=== PATIENT | female | born 1965 | race Asian ===

== ENCOUNTER 2018-10-26 18:27 | Inpatient (IN) | payer OTHER ==
[~2018-10-26] VITALS: Ht 160 cm; Wt 61.2 kg
[2018-10-26 18:35] VITALS: Ht 160 cm; Wt 61.2 kg
--- NOTE | 2018-10-26 19:46 | NUR ---
PT BROUGHT IN BY AMBULANCE FOR FLU LIKE SYMPTOMS X 2 DAYS WITH WITNESSED SYNCOPAL EPISODE AND "NO TRAUMA" PER RECEIVING WORKER. PT REPORTS GENERALIZED BODY ACHES THAT SHE STATES IS 10/10 PAIN. DENIES NAUSEA. AWAKE, ALERT, RESPIRATIONS EVEN AND UNLABORED, SAFETY PRECAUTIONS IN PLACE. WILL CONTINUE TO MONITOR.
--- NOTE | 2018-10-26 19:49 | NUR ---
MEDICAL DOCTOR MD/MEDICAL DIRECTOR AT BEDSIDE
--- NOTE | 2018-10-26 19:57 | NUR ---
PATIENT TAKEN FOR CT SCAN
--- NOTE | 2018-10-26 20:06 | NUR ---
PT BACK FROM CT, INFANT ROOM TEACHER AT BEDSIDE. STATUS REMAINS UNCHANGED. WILL CONTINUE TO MONITOR
[2018-10-26 20:07] LABS: BASOPHIL % 0 % (0-2); PLATELET COUNT 281 x10^3mcL (130-400); RED CELL DISTRIBUTION WIDTH 12.8 % (11.5-14.5)
[2018-10-26 20:14] LABS: CALCIUM 8.2 mg/dL (8.5-10.1); CARBON DIOXIDE 27.4 mmol/L (21-32); CHLORIDE SERUM 102 mmol/L (98-107); CREATININE SERUM 0.8 mg/dL (0.6-1.0); GFR1 > 60 mL/min; GLUCOSE SERUM 122 mg/dL (74-106); POTASSIUM SERUM 3.8 mmol/L (3.5-5.1); SODIUM SERUM 140 mmol/L (136-145)
[2018-10-26 20:18] LABS: ALBUMIN 3.4 g/dL (3.4-5.0); ALKALINE PHOSPHATASE 80 U/L (46-116); ALT/SGPT 45 U/L (14-59); AST/SGOT 52 U/L (15-37); BILIRUBIN TOTAL 0.43 mg/dL (0.20-1.00); TOTAL PROTEIN, SERUM 7.6 g/dL (6.4-8.2)
--- NOTE | 2018-10-26 20:32 | NUR ---
SPECIMEN CUP PROVIDED TO PATIENT AND VERBALIZED FOR NEED TO PROVIDE URINE SAMPLE, PATIENT VERBALIZES UNDERSTANDING
--- NOTE | 2018-10-26 20:51 | NUR ---
TEMP 101.7, DR. TAYLOR MADE AWARE, AWAITING ORDERS
--- NOTE | 2018-10-26 21:01 | NUR ---
MEDICATED PER EMAR. PT AWAKE, ALERT, RESPIRATIONS EVEN AND UNLABORED. WILL CONTINUE TO MONITOR
--- NOTE | 2018-10-26 21:04 | NUR ---
PT ESCORTED TO RESTROOM WITH HELP OF FAMILY
--- NOTE | 2018-10-26 21:27 | NUR ---
DR. TAYLOR PERFORMED LUMBAR PUNCTURE, PATIENT APPEARS TO HAVE TOLERATED WELL.
[2018-10-26 21:52] LABS: microscopic required? YES; urine erythrocyte TRACE (NEGATIVE)
[2018-10-26 22:13] LABS: TOTAL PROTEIN CSF 33 mg/dL (15-45)
[2018-10-26 22:28] LABS: APPEARANCE CSF CLEAR; COLOR CSF COLORLESS; RBC CSF 9 /cumm (0); WBC CSF 0 /cumm (0-5)
[2018-10-26 22:29] LABS: APPEARANCE CSF CLEAR; COLOR CSF COLORLESS; RBC CSF 1 /cumm (0); WBC CSF 0 /cumm (0-5)
--- NOTE | 2018-10-26 23:17 | NUR ---
PT RESTING WITH EYES CLOSED, RESPIRATIONS EVEN AND UNLABORED. FAMILY AT BEDSIDE. SAFETY PRECAUTIONS IN PLACE. WILL CONTINUE TO MONITOR
--- NOTE | 2018-10-26 23:31 | NUR ---
REPORT GIVEN TO CARMEL
--- NOTE | 2018-10-27 00:19 | NUR ---
REPORT GIVEN TO JUAN, ALL QUESTIONS AND CONCERNS WERE ADDRESSED
--- NOTE | 2018-10-27 00:44 | NUR ---
PATIENT WAS TRANSFERRED TO ROOM 243B WITHOUT ANY ISSUES ENCOUNTERED. IV SITE REMAINS CDI AND PATENT WITH NO S/S OF INFILTRATION, REDNESS, EDEMA, OR DRAINAGE. PRIMARY RN ACCEPTED PATIENT
[2018-10-27 01:08] VITALS: BP 134/76
--- NOTE | 2018-10-27 01:59 | NUR ---
PT RECIEVED FROM ED. DAUGHTER AT BEDSIDE. NO DISTRESS NOTED. IV SITE PATENT AND FLUSHING WELL. PT A/O X4. DENIES PAIN. DENIES SOB ON 2L NC. ORIENTED PT TO ROOM AND SURROUNDINGS. CALL LIGHT WITHIN REACH. BED IN LOWEST POSITION. SEIZURE PRECAUTIONS IN USE. WILL CONTINUE TO MONITOR.
--- NOTE | 2018-10-27 03:10 | NUR ---
PT CELESTE NOTIFIED VIA [facility] TO ORDER MRSA CULTURE AND TO CHANGE ROCEPHIN FROM IVP TO IVBP.
[2018-10-27 05:34] VITALS: BP 119/76
[2018-10-27 06:39] LABS: PLATELET COUNT 264 x10^3mcL (130-400); RED CELL DISTRIBUTION WIDTH 13.1 % (11.5-14.5)
[2018-10-27 06:42] LABS: CALCIUM 8.3 mg/dL (8.5-10.1); CARBON DIOXIDE 27.6 mmol/L (21-32); CHLORIDE SERUM 105 mmol/L (98-107); CREATININE SERUM 0.7 mg/dL (0.6-1.0); GFR1 > 60 mL/min; GLUCOSE SERUM 107 mg/dL (74-106); POTASSIUM SERUM 3.7 mmol/L (3.5-5.1); SODIUM SERUM 143 mmol/L (136-145)
[2018-10-27 06:47] LABS: BASOPHIL % 0 % (0-2)
--- NOTE | 2018-10-27 07:21 | NUR ---
PT COMPLAINT OF MCHUGH, RATES 8/10, CONTINUOUS, ACHING. DENIES DIZZINESS. MILD NAUSEA REPORTED. DECLINED TO MEDICATION FOR NAUSEA, GIVEN TYLENOL SEE MAR. PT AA/OX4. FOLLOWS COMPLEX COMMANDS, RESPONDS TO VERBAL STIMULI, FACE SYMMTRICAL. SPEECH CLEAR. SEIZURE PREC IN PLACE. NO S/S OF ACUTE DISTRESS. NO COMPLAINT OF CHEST PAIN. FOUND ON 2LNC, DENIES SOB. RR EVEN/UNLABORED. CHEST EXPANSION SYMMETRICAL. IV WNL TO LFA, NO REDNESS, NO SWELLING, NO INFILTRATION. PATENT. FLUSHES WELL. CALM/COOPERATIVE. INSTRUCTED TO USE CALL LIGHT TO CALL FOR ASSISTANCE PRN. PT VERBALIZED UNDERSTANDING. DROPLET PREC IN PLACE. DAUGHTER AT BEDSIDE. BED IN LOW POSITION. CALL LIGHT WITHIN REACH. WILL CONT. TO MONITOR.
[2018-10-27 09:29] VITALS: BP 112/66
--- NOTE | 2018-10-27 10:50 | NUR ---
PT FOUND RESTING IN BED WITH BOTH EYES CLOSED. NO S/S OF ACUTE DISTRESS. NO SOB ON 2LNC. PT CALM/COOPERATIVE. EASILY AROUSABLE TO VERBAL STIMULI. NO MCHUGH AT THIS TIME. NO N/V. NO DIZZINESS. NO FEVER. DAUGHTER AT BEDSIDE. DROPLET PREC IN PLACE. BED IN LOW POSITION. CALL LIGHT WITHIN REACH. WILL CONT. TO MONITOR.
[2018-10-27 13:05] VITALS: BP 121/82
[2018-10-27] MEDS ORDERED: TAM75 PO (15:22)
[2018-10-27 16:48] VITALS: BP 109/69
[2018-10-27 16:50] VITALS: BP 109/69
--- NOTE | 2018-10-27 17:15 | NUR ---
PT BEING DISCHARGED TO HOME. AWAKE, ALERT, ORIENTED X4. NO S/S OF ACUTE DISTRESS. NO N/V. NO MCHUGH. NO DIZZINESS. NO SOB ON ROOM AIR. O2 SAT 95%. RR EVEN/UNLABORED. PT HAS CONGESTED COUGH. NO S/S OF ACUTE DISTRESS. NO CHEST PAIN. NSR ON TELE, TELE REMOVED. DISCHARGE EDUCATION PROVIDED TO PATIENT/DAUGHTER. INSTRUCTED TO FOLLOW UP WITH PCP IN [address] DUFFY. PT/DAUGHTER VERBALIZED UNDERSTANDING. DROPLET PRECAUTIONS IN PLACE. IV REMOVED, CATHETER IN TACT. PRESSURE APPLIED. SITE WNL. NO REDNESS, NO SWELLING, NO INFILTRATION. NO CHEST PAIN. TELE REMOVED. NO CHILLS. NO FEVER. BELONGINGS WITH PATIENT. PRESCRIPTION WITH PATIENT.
--- NOTE | 2018-10-27 17:32 | NUR ---
PT TAKEN TO LOBBY BY ZULEYKA LIRIANO. AMBULATORY WITH FULL ROM, GAIT STEADY. AWAKE, ALERT, ORIENTED X4. BELONGINGS AND PRESCRIPTION WITH PATIENT. NO S/S OF ACUTE DISTRESS.
== END 2018-10-27 17:32 | disposition home or self-care (01) | DRG 113 ==
LOC: ED 18:27 → DU 23:31
PROVIDERS: Emergency Medicine; Internal Medicine; ADMIT Internal Medicine Pulmonary Disease
PROC: 009U3ZZ Drainage of Spinal Canal, Percutaneous Approach (ICD-10-PCS; principal; 2018-10-26)
DX: J11.1 Influenza due to unidentified influenza virus with other respiratory manifestations (principal); R56.9 Unspecified convulsions; R55 Syncope and collapse; Z23 Encounter for immunization
CPT/HCPCS: 87804; 90658; J0696; J1644; J2001; J7030; Q0092

== ENCOUNTER 2019-03-03 00:49 | Emergency (ER) | payer OTHER ==
[~2019-03-03] VITALS: Ht 160 cm; Wt 62.1 kg
[~2019-03-03 00:49] MED LIST: TAM75 PO
[2019-03-03 01:07] VITALS: Ht 160 cm; Wt 62.1 kg
[2019-03-03 02:07] LABS: BASOPHIL % 0.4 % (0-2); PLATELET COUNT 340 x10^3mcL (130-400); RED CELL DISTRIBUTION WIDTH 12.7 % (11.5-14.5)
[2019-03-03 02:21] LABS: CALCIUM 9.4 mg/dL (8.5-10.1); CARBON DIOXIDE 29.1 mmol/L (21-32); CHLORIDE SERUM 106 mmol/L (98-107); CREATININE SERUM 0.8 mg/dL (0.6-1.0); GFR1 > 60 mL/min; GLUCOSE SERUM 132 mg/dL (74-106); SODIUM SERUM 145 mmol/L (136-145)
[2019-03-03 02:25] LABS: ALBUMIN 3.9 g/dL (3.4-5.0); ALKALINE PHOSPHATASE 95 U/L (46-116); ALT/SGPT 26 U/L (14-59); AST/SGOT 17 U/L (15-37); BILIRUBIN TOTAL 0.18 mg/dL (0.20-1.00); LIPASE 142 IU/L (73-393); TOTAL PROTEIN, SERUM 7.4 g/dL (6.4-8.2)
[2019-03-03 03:52] VITALS: BP 142/79
== END 2019-03-03 03:52 | disposition home or self-care (01) ==
LOC: ED 00:49
PROVIDERS: Emergency Medicine
DX: K80.20 Calculus of gallbladder without cholecystitis without obstruction (principal); R07.2 Precordial pain
CPT/HCPCS: 36415; J1885; Q0092

== ENCOUNTER 2020-03-24 18:40 | Emergency (ER) | payer OTHER ==
[~2020-03-24] VITALS: Ht 162.6 cm; Wt 62.6 kg
[2020-03-24 18:44] VITALS: Ht 162.6 cm; Wt 62.6 kg
[2020-03-24 19:12] LABS: BASOPHIL % 0.1 % (0-2); PLATELET COUNT 327 x10^3mcL (130-400); RED CELL DISTRIBUTION WIDTH 12.7 % (11.5-14.5)
[2020-03-24 19:27] LABS: CALCIUM 8.4 mg/dL (8.5-10.1); CARBON DIOXIDE 22.7 mmol/L (21-32); CHLORIDE SERUM 100 mmol/L (98-107); CREATININE SERUM 0.9 mg/dL (0.6-1.0); GFR1 > 60 mL/min; GLUCOSE SERUM 124 mg/dL (74-106); POTASSIUM SERUM 3.6 mmol/L (3.5-5.1); SODIUM SERUM 138 mmol/L (136-145)
[2020-03-24 19:34] LABS: ALBUMIN 3.9 g/dL (3.4-5.0); ALKALINE PHOSPHATASE 98 U/L (46-116); ALT/SGPT 49 U/L (14-59); AST/SGOT 37 U/L (15-37); BILIRUBIN TOTAL 0.4 mg/dL (0.20-1.00); TOTAL PROTEIN, SERUM 7.7 g/dL (6.4-8.2)
[2020-03-24 21:08] VITALS: BP 137/76
== END 2020-03-24 21:08 | disposition home or self-care (01) ==
LOC: ED 18:40
PROVIDERS: Student in an Organized Health Care Education/Training Program
DX: R42 Dizziness and giddiness (principal); I10 Essential (primary) hypertension
CPT/HCPCS: J7030; J8597; Q0092